=== PATIENT | female | born 1970 | race Caucasian/White ===

== ENCOUNTER 2024-04-11 02:10 | Emergency (ER) | payer MEDICARE, SELFPAY ==
[2024-04-11] VITALS (41 sets, daily range): BP systolic 72–159; BP diastolic 48–102; PULSE 79–121; TEMP 36.6; O2SAT 91–99; BMI 50.9
--- NOTE | 2024-04-11 02:13 | ECG_ITS ---
[facility] Test Date: 2024-04-11 Pat Name: SABRINA ANDRADE Department: Room: - Gender: Female Registered Radiographer: : 1970 Requested By: [id number] Order Number: [id number] Reading MD: JM CRUZ Measurements Intervals Winn Rate: 79 P: 28 HI: 168 QRS: -39 QRSD: 90 T: 24 QT: 374 QTc: 409 Interpretive Statements 1100 Sinus rhythm 7200 Abnormal left axis deviation 9150 abnormal ECG No previous ECG available for comparison Electronically Signed On 04-12-2024 20:24:02 EDT by JM CRUZ
[2024-04-11] MEDS: ONDANSETRON PF 4 MG/2 ML VIAL IV (02:18)
[2024-04-11 02:19] LABS: Glucometer 129 mg/dL (74-106)
--- NOTE | 2024-04-11 02:34 | ED.SYNCOPE1 ---
HPI - Syncope General Chief Complaint: Dizziness Stated Complaint: VOMITING Time Seen by Provider: 04/11/24 02:16 Source: patient Mode of arrival: ambulance Limitations: no limitations History of Present Illness HPI narrative: patient presents from home with vomiting and syncope. Describes waking up and was dizzy and then vomited. Male partner believes she passed out. she says everything went black . she also was incontinent of urine. No longer feeling nauseated at this time Related Data Home Medications ?Medication ?Instructions ?Recorded ?Confirmed brexpiprazole 3 mg tablet (Rexulti) 3 mg PO DAILY 04/11/24 04/11/24 buspirone 30 mg tablet 30 mg PO BID 04/11/24 04/11/24 cyclobenzaprine 10 mg tablet 10 mg PO BEDTIME PRN muscle spasm 04/11/24 04/11/24 prazosin 5 mg capsule 5 mg PO QPM 04/11/24 04/11/24 sertraline 100 mg tablet 100 mg PO BID 04/11/24 04/11/24 trazodone 50 mg tablet 50 mg PO DAILY 04/11/24 04/11/24 Allergies Allergy/AdvReac Type Severity Reaction Status Date / Time No Known Drug Allergies Allergy Verified 04/11/24 02:06 Review of Systems ROS Status of ROS 10 or more systems reviewed and unremarkable except as noted in history and below Exam Constitutional Vital Signs, click to edit/add: Last Vital Signs Temp 97.8 F 04/11/24 02:06 Pulse 95 H 04/11/24 05:50 Resp 14 04/11/24 05:54 BP 147/102 H 04/11/24 05:30 Pulse Ox 97 04/11/24 05:50 O2 Del Method Room Air 04/11/24 02:06 Common normals: no apparent distress, average body habitus, oriented x3, no limitations, healthy appearing, alert and well nourished [facility] Common normals: normocephalic and head/scalp atraumatic Eye Common normals: EOMs intact bilaterally and conjunctivae normal Respiratory Common normals: normal respiratory effort, no retractions, no use of accessory muscles and clear to auscultation bilaterally Cardio Common normals: regular rate, regular rhythm, S1 normal heart sound and S2 normal heart sound Extremity Common normals: normal to inspection and full ROM Neuro Common normals: oriented x3, CN's II-XII intact bilaterally, moves all extremities and no focal motor deficits Psych Appearance: grossly normal Course Vital Signs Vital signs: Vital Signs Temperature 97.8 F 04/11/24 02:06 Pulse Rate 97 H 04/11/24 02:06 Respiratory Rate 15 04/11/24 02:06 Blood Pressure 111/68 04/11/24 02:06 Pulse Oximetry 96 04/11/24 02:06 Oxygen Delivery Method Room Air 04/11/24 02:06 Temperature 97.8 F 04/11/24 02:06 Pulse Rate 95 H 04/11/24 05:50 Respiratory Rate 14 04/11/24 05:54 Blood Pressure 147/102 H 04/11/24 05:30 Pulse Oximetry 97 04/11/24 05:50 Oxygen Delivery Method Room Air 04/11/24 02:06 MDM - Syncope MDM Narrative Medical decision making narrative: patient presents from home via [facility] with complaint of waking up and dizzy. Sounds vertiginous as she thought something was wrong with her glasses . She describes recurrent vomiting and then everything was black and urinary incontinence. Arrives here anxious but no longer dizzy and vision normal. No complaint of chest pain or dyspnea. Treated with zofran. CT brain neg. cxray clear. D-dimer neg. First troponin neg. Discussed admission due to her history suggesting she passed out. What she describes as everything became black. She however does not want to stay but is willing to have a 2nd troponin before discharge. EKG NSR. diffuse low voltage. LAD. she may have had a vaso vagal reaction to explain her blackout but atypical due to urine incontinence. She however is unwilling to stay. 2nd troponin ordered. Will plan discharge if it returns as normal Lab Data Labs: Lab Results 04/11/24 04/11/24 04/11/24 Range/Units 02:15 02:17 05:52 WBC 14.3 H (4.0-11.0) 10^3/uL RBC 5.09 (4.20-5.40) 10^6/uL Hgb 14.9 (12.0-16.0) g/dL Hct 44.9 (36.0-48.0) % MCV 88.2 (81.0-99.0) fL MCH 29.3 (26.7-34.0) pg MCHC 33.2 (29.9-35.2) g/dL RDW 15.1 H (11.0-15.0) % Plt Count 304 (150-450) 10^3/uL MPV 10.9 (9.5-13.5) fL Neut % (Auto) 60.7 (43.0-75.0) % Lymph % (Auto) 32.7 (20.5-60.0) % [place] % (Auto) 4.8 (1.7-12.0) % Eos % (Auto) 0.9 (0.9-7.0) % Baso % (Auto) 0.5 (0.2-2.0) % Neut # (Auto) 8.7 H (1.4-6.5) 10^3/uL Lymph # (Auto) 4.7 H (1.2-3.8) 10^3/uL [place] # (Auto) 0.7 (0.3-0.8) 10^3/uL Eos # (Auto) 0.1 (0.0-0.7) 10^3/uL Baso # (Auto) 0.1 (0.0-0.1) 10^3/uL Abs Immat Gran (auto) 0.06 H (0.00-0.03) 10^3/uL Imm/Tot Granulo (auto) 0.4 (0.0-0.5) % D-Dimer 0.55 (<=0.59) mg/L FEU Sodium 134 L (136-145) mmol/L Potassium 3.9 (3.5-5.1) mmol/L Chloride 96 L (98-107) mmol/L Carbon Dioxide 26.0 (21.0-32.0) mmol/L Anion Gap 15.9 BUN 9.0 (7.0-18.0) mg/dL Creatinine 1.13 H (0.55-1.02) mg/dL Est GFR ( Amer) >60 (>=60) Est GFR (Non-Af Amer) 50 L (>=60) BUN/Creatinine Ratio 8.0 Glucose 144 H (74-106) mg/dL Lactate 1.8 (0.4-2.0) mmol/L Calcium 9.1 (8.5-10.1) mg/dL Troponin I High Sens 4.4 4.6 (4.0-51.3) pg/mL POC Glucose 129 H (74-106) mg/dL Imaging Data Chest x-ray: Radiologist's impression: ITS Impressions Head CT 04/11/24 02:37 IMPRESSION: 1. No acute intracranial abnormality. No hemorrhage or mass effect. Electronically authenticated by: JEREMI KRISHNAMURTHY Date: 04/11/2024 03:12 Chest X-Ray 04/11/24 03:21 IMPRESSION: No acute cardiopulmonary process is identified. Electronically authenticated by: BE NOYOLA Date: 04/11/2024 05:45 Discharge Plan Discharge Chief Complaint: Dizziness Clinical Impression: Dizziness, Syncope Patient Disposition: Home, Self-Care Prescriptions / Home Meds: No Action buspirone 30 mg tablet 30 mg PO BID sertraline 100 mg tablet 100 mg PO BID Rexulti 3 mg tablet 3 mg PO DAILY trazodone 50 mg tablet 50 mg PO DAILY cyclobenzaprine 10 mg tablet 10 mg PO BEDTIME PRN (Reason: muscle spasm) prazosin 5 mg capsule 5 mg PO QPM Print Language: Czech Instructions: Syncope (ED), Dizziness (ED) Additional Instructions: drink plenty of fluids and follow up with your doctor in 2-3 days for recheck. Return if symptoms recur Referrals: Jose Enrique [Primary Care Provider] - 1 week
--- NOTE | 2024-04-11 02:37 | CT_ITS ---
The [address] [address] Patient Name: SABRINA ANDRADE MRN: [id number] date: 1970 Sex: F Assigned Patient Location: ER Current Patient Location: ER Accession/Order Number: [id number] Exam Date: 04/11/2024 02:45 Report Date: 04/11/2024 03:12 At the request of: LORI DONATO Procedure: CT head/brain wo con EXAM: CT head/brain wo con INDICATION: 53 years old; Female. Dizziness. TECHNIQUE: CT Head (ax/cor/sag reformats). Ionizing radiation dose reduced via iterative reconstruction/FBP blend and body size kV/mA adjustment. Comparison: None FINDINGS: POSTOPERATIVE CHANGES: None. BRAIN PARENCHYMA: No intraparenchymal or extra-axial hemorrhage. No mass effect. No midline shift or herniation. Normal barr/white differentiation. VENTRICLES/EXTRA-AXIAL SPACES: Normal for patient's age. SINUSES/MASTOIDS: The sinuses are clear although the maxillary sinuses are not completely included. Mastoids and middle ears are clear. MSK: No displaced or depressed calvarial fracture. OTHER: No hyperdense intraluminal thrombus is present. CT/CT head/brain wo con IMPRESSION: 1. No acute intracranial abnormality. No hemorrhage or mass effect. Electronically authenticated by: JEREMI KRISHNAMURTHY Date: 04/11/2024 03:12
[2024-04-11 02:43] LABS: Basophils Absolute Auto 0.1 10^3/uL (0.0-0.1); Basophils Percent Auto 0.5 % (0.2-2.0); Eosinophils Absolute Auto 0.1 10^3/uL (0.0-0.7); Eosinophils Percent Auto 0.9 % (0.9-7.0); Hematocrit 44.9 % (36.0-48.0); Hemoglobin 14.9 g/dL (12.0-16.0); Immature Granulocytes Abs Auto 0.06 10^3/uL (0.00-0.03); Immature Granulocytes Pct Auto 0.4 % (0.0-0.5); Lymphocytes Absolute Auto 4.7 10^3/uL (1.2-3.8); Lymphocytes Percent Auto 32.7 % (20.5-60.0); Mean Corpuscular HGB Conc 33.2 g/dL (29.9-35.2); Mean Corpuscular Hemoglobin 29.3 pg (26.7-34.0); Mean Corpuscular Volume 88.2 fL (81.0-99.0); Mean Platelet Volume 10.9 fL (9.5-13.5); Monocytes Absolute Auto 0.7 10^3/uL (0.3-0.8); Monocytes Percent Auto 4.8 % (1.7-12.0); Neutrophils Absolute Auto 8.7 10^3/uL (1.4-6.5); Neutrophils Percent Auto 60.7 % (43.0-75.0); Platelet Count 304 10^3/uL (150-450); Red Blood Count 5.09 10^6/uL (4.20-5.40); Red Cell Distribution Width 15.1 % (11.0-15.0); White Blood Count 14.3 10^3/uL (4.0-11.0)
[2024-04-11 02:57] LABS: Anion Gap 15.9; Calcium 9.1 mg/dL (8.5-10.1); Chloride 96 mmol/L (98-107); Estimated GFR (African America >60 (>=60); Estimated GFR (Non-African Ame 50 (>=60); Glucose 144 mg/dL (74-106); Lactate/Lactic Acid 1.8 mmol/L (0.4-2.0); Potassium 3.9 mmol/L (3.5-5.1); Sodium 134 mmol/L (136-145); Troponin I High Sensitivity 4.4 pg/mL (4.0-51.3)
[2024-04-11] MEDS: 0.9 % SODIUM CHLORIDE 1,000 ML 999 ML IV (02:59)
--- NOTE | 2024-04-11 03:21 | XR_ITS ---
The [address] [address] Patient Name: SABRINA ANDRADE MRN: [id number] date: 1970 Sex: F Assigned Patient Location: ER Current Patient Location: ER Accession/Order Number: [id number] Exam Date: 04/11/2024 03:24 Report Date: 04/11/2024 05:45 At the request of: LORI DONATO Procedure: XR chest 1V EXAM: XR chest 1V HISTORY: syncope COMPARISON: None. TECHNIQUE: AP chest x-ray. FINDINGS: Cardiac size appears within normal limits. Trachea is midline. No mediastinal widening. Lungs appear clear. No pneumothorax or effusion is identified. Osseous structures appear intact. XR/XR chest 1V IMPRESSION: No acute cardiopulmonary process is identified. Electronically authenticated by: BE NOYOLA Date: 04/11/2024 05:45
[2024-04-11 03:59] LABS: D Dimer 0.55 mg/L FEU (<=0.59)
[2024-04-11 06:11] LABS: Troponin I High Sensitivity 4.6 pg/mL (4.0-51.3)
== END 2024-04-11 06:44 | disposition home or self-care (01) ==
PROVIDERS: Emergency Provider Internal Medicine; PCP Family Medicine
DX: R42 Dizziness and giddiness (principal); R55 Syncope and collapse
CPT/HCPCS: 36415; 70450; 71045; 80048; 83605; 84484; 85025; 85378; 93005; 96361; 96374; 99285; J2405